=== PATIENT | female | born 1950 | race Hispanic/Latino ===

== ENCOUNTER 2017-10-16 14:06 | Outpatient (CLI) | payer OTHER | END 2017-10-16 14:07 | disposition home or self-care (01) | LOC: BICRAD 14:06 | PROVIDERS: ATTEND Family Medicine | DX: S93.401A Sprain of unspecified ligament of right ankle, initial encounter (principal) ==

== ENCOUNTER 2018-04-16 08:09 | Outpatient (CLI) | payer MEDICARE ==
[2018-04-16] MEDS ORDERED: ISOVUE-370 76%-LOCM 1 ML ONE (09:58)
--- NOTE | 2018-04-16 11:14 | CT ---
CT ABDOMEN AND PELVIS PERFORMED WITH INTRAVENOUS CONTRAST ENHANCEMENT: HISTORY: Followup of enlarged ree hepatis lymph nodes noted on the previous examination. In addition, the p atient complains of some sharp lower abdominal pain. History of cholecystectomy, appendectomy, and h ysterectomy. COMPARISON: A 10/09/2017 study that was performed at the [facility]. FINDINGS: ABDOMEN: The lung bases are clear of infiltrates. The liver, spleen, and pancreas regions appear unremarkable. The gallbladder has been removed. The right and left adrenal glands are normal in size and appearance. A small hypodensity involving t he left kidney, compatible with a small cyst, is stable. There is no significant periaortic or mesen teric adenopathy. The slightly enlarged ree hepatis lymph nodes are stable. PELVIS: No inflammatory process. No adenopathy, mass, or free fluid. Review of osseous structures show arthritic changes of the spine. IMPRESSION: 1. No acute abnormalities of the abdomen or pelvis. 2. Stable appearance to the ree hepatis lymph nodes. 3. Postoperative cholecystectomy change. POS: ELADIO
== END 2018-04-16 08:10 | disposition home or self-care (01) ==
LOC: BICCT 08:09
PROVIDERS: ATTEND Family Medicine
DX: R59.9 Enlarged lymph nodes, unspecified (principal); Z90.49 Acquired absence of other specified parts of digestive tract
CPT/HCPCS: 74177; 82565

== ENCOUNTER 2018-10-09 13:47 | Outpatient (CLI) | payer MEDICARE ==
--- NOTE | 2018-10-09 15:44 | MMO ---
Bilateral MAMMO Bilat Screen [facility]. CLINICAL HISTORY: Patient is 68 years old and is seen for screening. The patient has no family history of breast cancer. The patient has no personal history of cancer. The patient has a history of left Excisional Biopsy in 1969? - benign. VIEWS: The views performed were: bilateral craniocaudal with tomosynthesis and bilateral mediolateral oblique with tomosynthesis. FILMS COMPARED: The present examination has been compared to prior imaging studies performed at [facility] on 12/14/2000, 07/25/2001, 07/31/2003, 09/14/2004, 10/27/2005, 11/02/2005, 10/29/2006, 11/05/2007, 11/30/2008, 01/19/2010, 01/25/2011, 11/02/2014 and 06/29/2016. MAMMOGRAM FINDINGS: There are scattered fibroglandular densities. Benign calcifications are noted bilaterally. Nodularity is stable. There are no suspicious masses, suspicious calcifications, or new areas of architectural distortion. IMPRESSION: THERE IS NO MAMMOGRAPHIC EVIDENCE OF MALIGNANCY. A ROUTINE FOLLOW-UP MAMMOGRAM IN 1 YEAR IS RECOMMENDED. THE RESULTS OF THIS EXAM WERE SENT TO THE PATIENT. ACR BI-RADS Category 2 - Benign finding MAMMOGRAPHY NOTE: 1. A negative mammogram report should not delay a biopsy if a dominant of clinically suspicious mass is present. 2. Approximately 10% to 15% of breast cancers are not detected by mammography. 3. Adenosis and dense breasts may obscure an underlying neoplasm.
== END 2018-10-09 13:48 | disposition home or self-care (01) ==
LOC: BICMAMMO 13:47
PROVIDERS: ATTEND Family Medicine
DX: Z12.31 Encounter for screening mammogram for malignant neoplasm of breast (principal)
CPT/HCPCS: 77063; 77067

== ENCOUNTER 2019-01-14 09:42 | Outpatient (CLI) | payer MEDICARE ==
--- NOTE | 2019-01-14 10:47 | BD ---
DEXA BONE MINERAL DENSITY STUDY: HISTORY: Osteoporosis screening. Postmenopausal female. COMPARISON: None. FINDINGS: LUMBAR SPINE BMD (g/cm2) T-SCORE Z-SCORE L1 0.911 -0.7 1.0 L2 0.934 -0.9 1.0 L3 0.935 -1.4 0.7 L4 0.937 -1.1 0.9 TOTAL 0.930 -1.1 0.9 WHO CLASSIFICATION: Osteopenia. BMD (g/cm2) T-SCORE Z-SCORE FEMORAL NECK: 0.681 -1.5 -0.1 TOTAL LEFT HIP: 0.892 -0.4 0.7 WHO CLASSIFICATION: Osteopenia. TEN YEAR FRACTURE RISK: Major osteoporotic fracture: 9.3% Hip fracture: 1.1% IMPRESSION: Osteopenia with elevated fracture risk, as above. POS: ELADIO
== END 2019-01-14 09:43 | disposition home or self-care (01) ==
LOC: BICMAMMO 09:42
PROVIDERS: ATTEND Family Medicine
DX: Z13.820 Encounter for screening for osteoporosis (principal); M85.89 Other specified disorders of bone density and structure, multiple sites
CPT/HCPCS: 77080

== ENCOUNTER 2019-04-09 09:50 | Outpatient (CLI) | payer MEDICARE ==
--- NOTE | 2019-04-09 10:24 | ULT ---
Exam: Bilateral renal ultrasound HISTORY: Chronic kidney disease. Bilateral lower flank pain. COMPARISON: None Correlation: Abdomen pelvis CT 04/16/2018 FINDINGS: Right kidney: Diffuse renal cortical thinning. No obvious cortical masses. No hydronephrosis. Right kidney measurements: 4.7 x 11.1 x 4.2 cm. Left kidney: Normal cortical echotexture. No hydronephrosis Left kidney measurements 9.6 x 5.2 x 5.0 cm. Urinary bladder: Normal mucosa. IMPRESSION: No hydronephrosis.
== END 2019-04-09 09:51 | disposition home or self-care (01) ==
LOC: SCSULT 09:50
PROVIDERS: ATTEND Internal Medicine Nephrology
DX: N18.3 Chronic kidney disease, stage 3 (moderate) (principal)
CPT/HCPCS: 76770

== ENCOUNTER 2019-11-11 09:34 | Outpatient (CLI) | payer MEDICARE ==
--- NOTE | 2019-11-11 09:58 | RAD ---
Exam: Lumbar spine 2 views HISTORY: Low back pain FINDINGS: AP and lateral weightbearing views demonstrate 5 lumbar type vertebra. Lumbar spine vertebr al body height is maintained. There is no fracture. Moderate loss of disc space height at L4-L5. 0.5 cm of anterolisthesis of L4 upon L5. Degenerative changes of the distal thoracic spine and thoracolumbar junction with osteophyte formatio n and loss of disc space height. Visualized bony pelvis and sacrum are intact IMPRESSION: Degenerative changes as described above.
== END 2019-11-11 09:35 | disposition home or self-care (01) ==
LOC: BICRAD 09:34
PROVIDERS: ATTEND Family Medicine
DX: M54.5 Low back pain (principal); M47.816 Spondylosis without myelopathy or radiculopathy, lumbar region
CPT/HCPCS: 72100

== ENCOUNTER 2020-11-23 09:43 | Outpatient (CLI) | payer MEDICARE | END 2020-11-23 09:44 | disposition home or self-care (01) | LOC: BICMAMMO 09:43 | PROVIDERS: ATTEND Family Medicine | DX: Z12.31 Encounter for screening mammogram for malignant neoplasm of breast (principal); Z91.89 Other specified personal risk factors, not elsewhere classified | CPT/HCPCS: 77063; 77067 ==

== ENCOUNTER 2022-01-10 11:56 | Outpatient (CLI) | payer MEDICARE | END 2022-01-10 11:57 | disposition home or self-care (01) | LOC: BICMAMMO 11:56 | PROVIDERS: ATTEND Family Medicine | DX: Z12.31 Encounter for screening mammogram for malignant neoplasm of breast (principal); Z91.89 Other specified personal risk factors, not elsewhere classified | CPT/HCPCS: 77063; 77067 ==

== ENCOUNTER 2023-05-21 10:48 | Outpatient (CLI) | payer MEDICARE | END 2023-05-21 10:49 | disposition home or self-care (01) | LOC: BICMAMMO 10:48 | PROVIDERS: ATTEND Family Medicine | DX: Z12.31 Encounter for screening mammogram for malignant neoplasm of breast (principal); Z91.89 Other specified personal risk factors, not elsewhere classified | CPT/HCPCS: 77063; 77067 ==

== ENCOUNTER 2023-11-13 11:02 | Outpatient (CLI) | payer MEDICARE | END 2023-11-13 11:03 | disposition home or self-care (01) | LOC: BICMAMMO 11:02 | PROVIDERS: ATTEND Family Medicine | DX: Z13.820 Encounter for screening for osteoporosis (principal); M85.851 Other specified disorders of bone density and structure, right thigh; M85.852 Other specified disorders of bone density and structure, left thigh; Z78.0 Asymptomatic menopausal state | CPT/HCPCS: 77080 ==

== ENCOUNTER 2024-08-11 10:33 | Outpatient (CLI) | payer MEDICARE | END 2024-08-11 10:34 | disposition home or self-care (01) | LOC: BICMAMMO 10:33 | PROVIDERS: ATTEND Family Medicine | DX: Z12.31 Encounter for screening mammogram for malignant neoplasm of breast (principal) | CPT/HCPCS: 77063; 77067 ==